=== PATIENT | female | born 2000 | race African-American/Black ===

== ENCOUNTER 2021-11-13 22:49 | Emergency (ER) | payer BC ==
[2021-11-14] MEDS ORDERED: Acetaminophen 500 MG TAB ONE (00:24)
[2021-11-14] MEDS ORDERED: Ondansetron PF 4 MG/2 ML Vial ONE (00:24)
[2021-11-14] MEDS ORDERED: Ketorolac Tromethamine 30 MG/ML VIAL ONE (00:24)
[2021-11-14] MEDS ORDERED: Bicillin LA 1.2 MILLION UNITS/2 ML SYRINGE ONE (01:33)
[2021-11-14 09:18] LABS: SARS-CoV-2 NAA Rapid Test Not Detected (NotDetected)
== END 2021-11-14 02:19 | disposition home or self-care (01) ==
LOC: ERS 22:49
DX: J02.0 Streptococcal pharyngitis (principal); M79.10 Myalgia, unspecified site; R11.10 Vomiting, unspecified; Z20.822 Contact with and (suspected) exposure to COVID-19
CPT/HCPCS: 36416; 71045; 93005; 96372; 96374; 96375; J0561; J1885; J2405

== ENCOUNTER 2023-04-06 03:45 | Emergency (ER) | payer SELFPAY ==
[2023-04-06] MEDS ORDERED: Ondansetron PF 4 MG/2 ML Vial ONE (04:45)
[2023-04-06] MEDS ORDERED: fentaNYL 50 mcg/mL 1 mL Vial ONE (04:45)
[2023-04-06 04:57] LABS: #Eosinphils 0.1 thou/uL (0.0-0.7); #Monocytes 0.5 thou/uL (0.11-0.59); #Neutrophils 7.5 thou/uL (1.40-6.50); %Basophils 0.2 % (0.0-1.0); %Eosinophils 1.3 % (0.0-10.0); %Lymphocytes 18.4 % (21.0-51.0); %Monocytes 4.9 % (0.0-10.0); %Neutrophils 74.9 % (42.0-75.0); Hematocrit 39.3 % (36.0-47.0); Hemoglobin 13.5 g/dL (12.0-16.0); Mean Corpuscular HGB CONC 34.4 g/dL (32.0-36.0); Mean Corpuscular Hemoglobin 32.1 pg (27.0-31.0); Mean Corpuscular Volume 93.6 fl (78.0-98.0); Mean Platelet Volume 10.5 fL (7.4-10.4); Platelet Count 268 10x3/uL (130-400)
[2023-04-06 05:07] LABS: BHCG - Serum Negative (NEGATIVE); Pregs Control Background? CLEAR/WHITE (CLR/WHITE); Pregs Control Bar Appear? YES (CONTROL BAR)
[2023-04-06 05:18] LABS: ALT (SGPT) 14 U/L (8-55); AST (SGOT) 21 U/L (5-34); Albumin 4.6 g/dL (3.5-5.0); Alcohol 203.9 mg/dL (Less than 10); Alkaline Phosphatase 56 U/L (40-110); Anion Gap 13 mmol/L (10-20); BUN (Urea Nitrogen) 7 mg/dL (7.0-18.7); Bilirubin, Total 0.2 mg/dL (0.2-1.2); Calc. Creatinine Clearance 0 mL/min (70-130); Calcium 9.7 mg/dL (7.8-10.44); Carbon Dioxide 26 mmol/L (22-29); Chloride 104 mmol/L (98-107); Estimated GFR 124; Glucose 105 mg/dL (70-105); Potassium 3.8 mmol/L (3.5-5.1); Protein, Total 7.6 g/dL (6.0-8.3); Sodium 139 mmol/L (136-145)
[2023-04-06] MEDS ORDERED: Ketorolac Tromethamine 30 MG (1 mL) VIAL ONE (05:27)
[2023-04-06] MEDS ORDERED: Iopamidol 370 76% 100 ML VIAL ONE (09:54)
== END 2023-04-06 08:20 | disposition home or self-care (01) ==
LOC: ERS 03:45
DX: S42.001A Fracture of unspecified part of right clavicle, initial encounter for closed fracture (principal); F10.129 Alcohol abuse with intoxication, unspecified; N83.202 Unspecified ovarian cyst, left side; N83.201 Unspecified ovarian cyst, right side; V86.95XA Unspecified occupant of 3- or 4- wheeled all-terrain vehicle (ATV) injured in nontraffic accident, initial encounter
CPT/HCPCS: 36415; 70450; 71260; 72125; 74177; 80053; 80307; 84703; 85025; 96374; 96375; J1885; J2405; J3010; Q9967